=== PATIENT | female | born 1940 | race Caucasian/White ===

== ENCOUNTER 2018-04-25 11:44 | Emergency (ER) | payer OTHER ==
[2018-04-25 11:55] VITALS: BMI 23.3
--- NOTE | 2018-04-25 13:54 | PDOC ---
History of Present Illness - General Chief Complaint: Urinary Problem Stated Complaint: PAIN/ BACK, LT KNEE PAIN, URINARY PROBLEM Time Seen by Provider: 04/25/18 13:54 History Source: Patient Exam Limitations: No Limitations - History of Present Illness Initial Comments: This is a 77 YOF with h/o HTN and HLD who p/w back pain, RLE swelling, right knee pain, dry mouth, and urinary frequency worsening over the past month. She states that the pain is in the lower back on both sides but not overlying the spine. She additionally has noted right leg swelling more than the left worsening over about the past week, as well as urinary frequency far beyond her normal baseline. She has needed to urinate about 5-6 times during the night which is abnormal for her. She denies any fever, chills, nausea, vomiting, diarrhea, constipation, chest pain, SOB, headache, dizziness, lightheadedness, black/bloody stool, numbness, tingling, weakness, weight loss, night sweats, malaise, lymph node swelling/tenderness, vaginal bleeding/discharge, burning on urination, strange colors/smells to her urine, or other symptoms. She takes amlodipine, atenolol, and atorvastatin and has no recent medication changes. Past History - Past Medical History Allergies/Adverse Reactions: Allergies Allergy/AdvReac Type Severity Reaction Status Date / Time aspirin Allergy Verified 04/25/18 11:50 Home Medications: Ambulatory Orders Amlodipine-Olmesartan 5-20 mg 1 tablet PO DAILY 04/25/18 Atenolol 25 mg PO DAILY 04/25/18 Atorvastatin Ca 10 mg PO DAILY 04/25/18 Cardiac Disorders: Yes COPD: No HTN: Yes Hypercholesterolemia: Yes - Surgical History Appendectomy: Yes - Reproductive History Is Patient Now?: No Therapeutic (s) & number: No - Suicide/Smoking/Psychosocial Hx Smoking History: Never smoked Information on smoking cessation initiated: No Hx Alcohol Use: No Drug/Substance Use Hx: No Substance Use Type: None Review of Systems - Review of Systems Able to Perform ROS?: Yes Constitutional: No: Chills, Fever, Unexplained wgt Loss HEENTM: No: Nose Congestion, Throat Pain Respiratory: No: Cough, Shortness of Breath Cardiac (ROS): Yes: Edema. No: Chest Pain, Irregular Heart Rate, Lightheadedness, Palpitations, Syncope, Chest Tightness ABD/GI: No: Constipated, Diarrhea, Nausea, Vomiting : Yes: Frequency. No: Burning, Dysuria Musculoskeletal: Yes: Back Pain, Other (right leg swelling). No: Neck Pain Integumentary: No: Bruising, Rash Neurological: No: Headache, Numbness, Tingling, Weakness, Dizziness Endocrine: No: Unexplained Weight Gain, Unexplained Weight Loss *Physical Exam - Vital Signs Last Vital Signs Temp Pulse Resp BP Pulse Ox 98.0 F 65 18 146/87 100 04/25/18 11:52 04/25/18 11:52 04/25/18 11:52 04/25/18 11:52 04/25/18 11:52 - Physical Exam General Appearance: Yes: Nourished, Appropriately Dressed, Other (awake, alert, well appearing, nontoxic appearing, comfortably stands without difficulty). No : Apparent Distress HEENT: positive: EOMI, GT, Normal Voice, Hearing Grossly Normal, Other. negative: Scleral Icterus (R), Scleral Icterus (L), Nasal Congestion Neck: positive: Trachea midline, Supple. negative: Tender, Rigid Respiratory/Chest: positive: Lungs Clear, Normal Breath Sounds. negative: Respiratory Distress, Crackles, Rhonchi, Stridor, Wheezing Cardiovascular: positive: Regular Rhythm, Regular Rate, S1, S2, Edema (trace RLE ), Murmur (2/6 systolic) Gastrointestinal/Abdominal: positive: Normal Bowel Sounds, Flat, Soft. negative : Tender, Organomegaly, Pulsatile Mass, Guarding Musculoskeletal: positive: Normal Inspection. negative: Decreased Range of Motion, Vertebral Tenderness Extremity: positive: Normal Capillary Refill, Normal Inspection, Normal Range of Motion, Swelling (trace RLE edema). negative: Tender, Cyanosis Integumentary: positive: Normal Color, Dry, Warm. negative: Erythema, Rash, Bruising Neurologic: positive: forest engineer II-XII NML intact (grossly), Fully Oriented, Alert, Normal Mood/Affect, Normal Response, Motor Strength 5/5. negative: Facial Droop , Numbness, Sensory Deficit, Confused, Disoriented ED Treatment Course - LABORATORY CBC & Chemistry Diagram: 04/25/18 14:27 04/25/18 14:27 Medical Decision Making - Medical Decision Making 04/25/18 14:39 Adult Pt p/w urinary frequency without pain, also with lumbar paraspinous pain, RLE mild swelling. Initial Vital Signs Temp Pulse Resp BP Pulse Ox 98.0 F 65 18 146/87 100 04/25/18 11:52 04/25/18 11:52 04/25/18 11:52 04/25/18 11:52 04/25/18 11:52 Exam: 2/6 systolic ejection murmur, lower lumbar paraspinous ttp, no sciatic nerve ttp, 5/5 strength BLE, trace swelling RLE without calf ttp or palpable cord. DDX IBNLT: UTI/pyelonephritis, medication effect, interstitial cystitis, neurogenic bladder, abdominal space-occupying mass (e.g. cyst or malignancy), [employer] SERV[employer] TECHNICIAN lesion causing incontinence, etc. W/U ordered: CBCD CMP Mg Phos UA UCx EKG CXR TX ordered: Unlikely malignancy as Pt has no palpable mass, no reported recent B symptoms. Laboratory Tests 04/25/18 04/25/18 04/25/18 13:45 14:27 14:27 WBC 6.9 RBC 4.63 Hgb 14.5 Hct 43.2 MCV 93.2 MCH 31.3 MCHC 33.6 RDW 13.7 Plt Count 230 MPV 9.6 Absolute Neuts (auto) 4.0 Neutrophils % 58.1 Lymphocytes % 32.1 Monocytes % 7.0 Eosinophils % 1.8 Basophils % 1.0 Nucleated RBC % 0 Sodium Cancelled Potassium Cancelled Chloride Cancelled Carbon Dioxide Cancelled Anion Gap Cancelled BUN Cancelled Creatinine Cancelled Creat Clearance w eGFR Cancelled Random Glucose Cancelled Calcium Cancelled Total Bilirubin Cancelled AST Cancelled ALT Cancelled Alkaline Phosphatase Cancelled Creatine Kinase Creatine Kinase Index CK-MB (CK-2) Troponin I B-Natriuretic Peptide Total Protein Cancelled Albumin Cancelled Urine Color Colorless Urine Appearance Clear Urine pH 8.0 Ur Specific [place] 1.004 Urine Protein Negative Urine Glucose (UA) Negative Urine Ketones Negative Urine Blood Negative Urine Nitrite Negative Urine Bilirubin Negative Urine Urobilinogen Negative Ur Leukocyte Esterase Negative 04/25/18 14:27 WBC RBC Hgb Hct MCV MCH MCHC RDW Plt Count MPV Absolute Neuts (auto) Neutrophils % Lymphocytes % Monocytes % Eosinophils % Basophils % Nucleated RBC % Sodium 141 Potassium 3.9 Chloride 106 Carbon Dioxide 30 Anion Gap 5 L BUN 19 H Creatinine 0.8 Creat Clearance w eGFR > 60 Random Glucose 101 Calcium 9.0 Total Bilirubin 0.4 AST 35 ALT 36 Alkaline Phosphatase 95 Creatine Kinase 184 Creatine Kinase Index 1.2 CK-MB (CK-2) 2.24 Troponin I < 0.02 B-Natriuretic Peptide 274.51 Total Protein 7.4 Albumin 3.4 Urine Color Urine Appearance Urine pH Ur Specific [place] Urine Protein Urine Glucose (UA) Urine Ketones Urine Blood Urine Nitrite Urine Bilirubin Urine Urobilinogen Ur Leukocyte Esterase US: NADP CXR: NADP Reassessment: Patient feels better, able to walk unassisted, comfortable going home, will call [facility] for f/u. Repeat VS: The Pt is appropriate for discharge with close outpatient follow up. Workup is not concerning for emergency-level pathology at this time. The Pt is comfortable with this plan and will follow up with a PCP in 1-3 days. She will take OTC Tylenol for back pain. Specific return precautions are discussed and she will come back to the ER if necessary. *DC/Admit/Observation/Transfer Diagnosis at time of Disposition: Urinary frequency Back pain Qualifiers: Back pain location: low back pain Chronicity: unspecified Back pain laterality : bilateral Sciatica presence: without sciatica Qualified Code(s): M54.5 - Low back pain Knee pain Qualifiers: Chronicity: unspecified Laterality: right Qualified Code(s): M25.561 - Pain in right knee - Discharge Dispostion Disposition: HOME Condition at time of disposition: Stable Decision to Admit order: No - Referrals Referrals: [facility] [Provider Group] - Patient Instructions Printed Discharge Instructions: DI for Low Back Pain Additional Instructions: You were seen in the ER for back pain, urinary frequency, and leg swelling. We did lab work on your blood and urine, and there were no findings on the results that could explain your symptoms. We also did imaging studies, and on the results of these there were also no concerning findings that could explain your symptoms. We talked about the results of these studies with you. After our assessment, we do not believe you are having a medical emergency at this time, and we believe you are safe to go home. Please picker packer Tylenol from the pharmacy and take it as instructed on the label. Speak with the pharmacist when you pick them up to go over any side effects, medication reactions, and other concerns. Please follow up with a regular doctor in 1-3 days. We are giving you referral information in this packet of papers. Call their clinic [facility], tell them you were seen in the ER, and tell them you need an appointment. Please come back to the ER at any time, 24 hours a day, for any new or worsening symptoms. If you are having severe or life threatening symptoms, or symptoms that make it unsafe to drive or have someone drive you, please call 911. Usted fue visto en la martha de urgencias por dolor de espalda, frecuencia urinaria e hinchazn de la pierna. Hicimos anlisis de laboratorio con ba so y orina, y no hubo hallazgos sobre los resultados que pudieran explicar omari sntomas. Dianelys hicimos estudios de imgenes, y en los resultados de estos tampoco hubo hallazgos preocupantes que pudieran explicar omari sntomas. Hablamos sobre los resultados de estos estudios con usted. Despus de nuestra evaluacin, no creemos que est teniendo nazario emergencia mdica en duane momento, y creemos que est seguro de irse a casa. Recoja Tylenol de la farmacia y tmelo feliberto se indica en la etiqueta. Hable con el farmacutico cuando los retire para revisar los efectos secundarios, las reacciones a los medicamentos y otras inquietudes. Por favor cali un seguimiento con un mdico regular en 1-3 rosenthal. Le proporcionamos informacin de referencia en duane paquete de documentos. Llame a ba clnica lo antes posible, dgales que lo vieron en la martha de emergencias y dgales que necesita nazario sean. Regrese a la martha de emergencias en cualquier momento, las 24 horas del da, para cualquier sntoma nuevo o que empeore. Si tiene sntomas graves o que amenazan la ela, o sntomas que hacen que sea inseguro conducir o que alguien lo tl pete al 911. Print Language: ARGENTINE - Post Discharge Activity
[2018-04-25 14:20] LABS: URINE APPEARANCE CLEAR; URINE BILIRUBIN NEGATIVE (<2.0 mg/dL); URINE COLOR COLORLESS; URINE GLUCOSE (UA) NEGATIVE (NEGATIVE); URINE KETONE NEGATIVE (NEGATIVE); URINE LEUK ESTERASE NEGATIVE (NEGATIVE); URINE NITRITE NEGATIVE (NEGATIVE); URINE PROTEIN NEGATIVE (NEGATIVE); URINE UROBILINOGEN NEGATIVE mg/dL (0.2-1.0)
--- NOTE | 2018-04-25 14:35 | PDOC ---
Attending Attestation - Resident Resident Name: Yuli Hamilton - ED Attending Attestation I have performed the following: I have examined & evaluated the patient, The case was reviewed & discussed with the resident, I agree w/resident's findings & plan, Exceptions are as noted - HPI HPI: 04/25/18 14:32 77yo F hx HTN, HL presents with multiple complaints including progressive LBP b/ l, RLE swelling, R knee pain, urinary frequency for 1 month. She denies any trauma causing the low back or RLE pain. She presents today as symptoms are not improving. Has not seen her PMD for sxs. No treatments tried. She denies any fever, chills, dysuria, n/v/d, cp/sob, weakness, dizziness, numbness. No tx tried - Physicial Exam PE: 04/25/18 15:11 agree with resident exam
[2018-04-25 14:38] LABS: EOS % 1.8 % (0-4.5); HEMATOCRIT 43.2 % (32.4-45.2); HEMOGLOBIN 14.5 GM/dL (10.7-15.3); LYMPH % 32.1 % (8-40); MCH 31.3 pg (25.7-33.7); MCHC 33.6 g/dl (32.0-36.0); MEAN CELL VOLUME 93.2 fl (80-96); MEAN PLT VOLUME 9.6 fl (7.5-11.1); NEUT % 58.1 % (42.8-82.8); PLATELET COUNT 230 K/MM3 (134-434); RBC 4.63 M/mm3 (3.60-5.2); RDW 13.7 % (11.6-15.6); WHITE BLOOD COUNT 6.9 K/mm3 (4.0-10.0)
[2018-04-25 15:07] LABS: ALBUMIN 3.4 g/dl (3.4-5.0); ANION GAP 5 (8-16); BLOOD UREA NITROGEN 19 mg/dL (7-18); CHLORIDE 106 mmol/L (98-107); CO2 30 mmol/L (21-32); GLUCOSE,RANDOM 101 mg/dL (74-106); SODIUM 141 mmol/L (136-145)
[2018-04-25 15:13] LABS: ALK PHOS 95 U/L (45-117); BILIRUBIN,TOTAL 0.4 mg/dL (0.2-1.0); CREATININE 0.8 mg/dL (0.55-1.02); N-TERMINAL BNP 274.51 pg/ml (5-450); SGPT/ALT 36 U/L (12-78); TOT PROT 7.4 g/dl (6.4-8.2)
[2018-04-25 15:14] LABS: POTASSIUM 3.9 mmol/L (3.5-5.1); SGOT/AST 35 U/L (15-37)
--- NOTE | 2018-04-25 16:02 | EKG ---
Test Reason : Blood Pressure : / mmHG Vent. Rate : 053 BPM Atrial Rate : 053 BPM P-R Int : 180 ms QRS Dur : 074 ms QT Int : 452 ms P-R-T Axes : 033 -07 023 degrees QTc Int : 424 ms SINUS BRADYCARDIA VOLTAGE CRITERIA FOR LEFT VENTRICULAR HYPERTROPHY ABNORMAL ECG NO PREVIOUS ECGS AVAILABLE Confirmed by MICH STARR MD ([id number]) on 04/25/2018 4:02:06 PM Referred By: Confirmed By:MICH STARR MD
[2018-04-25 17:34] VITALS: BP 127/98; PULSE 79; TEMP 98.3
== END 2018-04-25 17:32 | disposition home or self-care (01) ==
LOC: JER 11:44
DX: R35.0 Frequency of micturition (principal); M25.561 Pain in right knee; I10 Essential (primary) hypertension; E78.5 Hyperlipidemia, unspecified
CPT/HCPCS: 36415; 71045-TC-FY; 80053; 81003; 82550; 82553; 83880; 84484; 85025; 87086; 93005; 93010; 93971-TC; 99283-25

== ENCOUNTER 2024-05-06 20:31 | Emergency (ER) | payer OTHER ==
[2024-05-06 20:56] VITALS: BMI 23.2
[2024-05-06 22:23] LABS: BASO % 0.7 % (0-2.0); EOS % 1.4 % (0-4.5); HEMATOCRIT 42.8 % (32.4-45.2); HEMOGLOBIN 14.7 GM/dL (10.7-15.3); LYMPH % 28.4 % (8-40); MCH 31.6 pg (25.7-33.7); MCHC 34.4 g/dl (32.0-36.0); MEAN PLT VOLUME 8.9 fl (7.5-11.1); MONO % 9.6 % (3.8-10.2); NEUT % 59.9 % (42.8-82.8); PLATELET COUNT 220 10^3/uL (134-434); RBC 4.65 M/mm3 (3.60-5.2); RDW 14.4 % (11.6-15.6); WHITE BLOOD COUNT 5.9 K/mm3 (4.0-10.0)
[2024-05-06 22:24] LABS: PH,URINE 7.5 (5.0-8.0); URINE APPEARANCE CLEAR; URINE BILIRUBIN NEGATIVE (NEGATIVE); URINE COLOR YELLOW; URINE GLUCOSE (UA) NEGATIVE (NEGATIVE); URINE KETONE NEGATIVE (NEGATIVE); URINE LEUK ESTERASE NEGATIVE (NEGATIVE); URINE NITRITE NEGATIVE (NEGATIVE); URINE PROTEIN NEGATIVE (NEGATIVE); URINE UROBILINOGEN 0.2 mg/dL (0.2-1.0)
[2024-05-06 22:50] LABS: POTASSIUM 3.7 mmol/L (3.5-5.1)
[2024-05-06 22:52] LABS: CALCIUM 9.2 mg/dL (8.5-10.1)
[2024-05-06 22:53] LABS: ALBUMIN 3.4 g/dl (3.4-5.0); BLOOD UREA NITROGEN 22.2 mg/dL (7-18)
[2024-05-06 22:56] LABS: CREATININE 1.1 mg/dL (0.55-1.3)
[2024-05-06 22:57] LABS: BILIRUBIN,TOTAL 0.5 mg/dL (0.2-1); TOT PROT 7.5 g/dl (6.4-8.2)
[2024-05-07 00:54] VITALS: TEMP 98.6
[2024-05-07 01:04] VITALS: BP 172/92; PULSE 61; RESP 18
== END 2024-05-07 01:15 | disposition home or self-care (01) ==
LOC: JER 20:31
DX: I10 Essential (primary) hypertension (principal); R07.2 Precordial pain; R53.1 Weakness
CPT/HCPCS: 36415; 71046-TC-FY; 80053; 81003; 84484; 85025; 93005; 93010; 99285-25